=== PATIENT | female | born 1945 | race Caucasian/White ===

== ENCOUNTER → 2024-04-20 | Outpatient (REF) | payer MEDICARE, MEDICAID ==
[~2024-04-20] MED LIST: ATOR1TAB21 PO; CARV25TA PO; COVI30VI IM; HYDR-161 PO; LISI40TA4 PO
[2024-04-20 13:59] LABS: HEPATITIS B SURFACE ANTIBODY NEGATIVE (POSITIVE)
[2024-04-20 14:10] LABS: HEPATITIS B SURFACE ANTIGEN NEGATIVE (NEGATIVE)
[2024-04-20 14:31] LABS: HEPATITIS C VIRUS ABY INDEX < 0.02 INDEX (<0.8)
== END ==
LOC: M SFHCRHEU 10:34
PROVIDERS: ATTEND Internal Medicine
DX: R76.8 Other specified abnormal immunological findings in serum (principal); Z11.59 Encounter for screening for other viral diseases

== ENCOUNTER 2025-03-21 09:53 | Inpatient (IN) | payer MEDICARE, MEDICAID ==
[~2025-03-21 09:53] MED LIST changes: +ALBUTEROL SULFATE 2.5 MG/0.5 ML INH CONCENTRATE NEB SOLN INH PRN; +EPINEPHrine INJ 1 MG/ML 1ML AMP IM PRN; +LISI40TA10 PO; -LISI40TA4 PO; +diphenhydrAMINE 50 MG/ML VIAL IV PRN
[2025-03-21 12:30] VITALS: BP 200/90; TEMP 97.5; O2SAT 93
[2025-03-21] MEDS ORDERED: ACETAMINOPHEN 325 MG TAB PO PRN (12:40)
[2025-03-21] MEDS ORDERED: ALBUTEROL SULFATE 2.5 MG/0.5 ML INH CONCENTRATE NEB SOLN NEB PRN (12:40)
[2025-03-21] MEDS ORDERED: BENZ-18 PO ×2 (13:51→16:32)
[2025-03-21] MEDS ORDERED: DOXY100C3 PO (13:51)
[2025-03-21] MEDS ORDERED: AZIT500T5 PO ×2 (13:51→16:30)
[2025-03-21] MEDS ORDERED: ACET1TAB55 PO (13:51)
[2025-03-21 13:56] LABS: BASO # 0.0 10^3/uL (0.0-0.2); BASO % 0.3 % (0.0-1.0); EOS # 0.0 10^3/uL (0.0-0.5); EOS % 0.0 % (0.0-3.0); LYMPH # 0.7 10^3/uL (1.5-5.0); LYMPH % 5.9 % (24.0-44.0); MONO # 0.3 10^3/uL (0.0-0.8); MONO % 2.7 % (2.0-8.0); NEUTROPHILS # 10.3 10^3/uL (1.5-8.5); NEUTROPHILS % 89.7 % (36.0-66.0)
[2025-03-21 13:57] VITALS: BP 186/86
[2025-03-21 13:59] LABS: PLTBLUE- EDTA FREE CALC 100 K/mm3 (172-450)
[2025-03-21] MEDS ORDERED: HOME MED LIST COMPLETE! XX SCH (14:05)
[2025-03-21] MEDS ORDERED: BENZONATATE 100 MG CAPSULE PO PRN (14:10)
[2025-03-21 14:16] LABS: INR 0.93
[2025-03-21 14:17] LABS: ALT/SGPT 60.0 U/L (7.0-40); AST/SGOT 74.0 U/L (<34); CALCIUM LEVEL 9.0 MG/DL (8.3-10.6); CARBON DIOXIDE LEVEL 29.0 MMOL/L (20-31); CHLORIDE LEVEL 105.0 MMOL/L (98-107); CREATININE FOR GFR 0.76 MG/DL (0.55-1.30); GLOMERULAR FILTRATION RATE 80.7 (>39); POTASSIUM SERUM 4.1 MMOL/L (3.5-5.1); SODIUM LEVEL 145.0 MMOL/L (136-145)
[2025-03-21 14:22] LABS: PLTBLUE- EDTA FREE MACHINE 91 10^3/uL (172-450)
[2025-03-21 14:27] LABS: PLATELET CHECK? YES (YES)
[2025-03-21 15:23] VITALS: BP 182/90
[2025-03-21] MEDS: hydrALAZINE 20 MG/ML 1 ML VIAL IV PRN (15:23)
[2025-03-21] MEDS: ACETAMINOPHEN 325 MG TAB PO SCH (15:33)
[2025-03-21] MEDS: diphenhydrAMINE 50 MG/ML VIAL IV SCH (15:33)
[2025-03-21 15:45] VITALS: BP 162/86; TEMP 97.6; O2SAT 93
[2025-03-21] MEDS: IMMUNE GLOBULIN 10% 20 GM in IV 1 EA IV SCH (16:09)
[2025-03-21] MEDS ORDERED: VENTAER INH (16:30)
[2025-03-21] MEDS ORDERED: CEFD1CAP9 PO (16:30)
[2025-03-21] MEDS ORDERED: IMMUNE GLOBULIN 10% 40 GM in IV 1 EA IV SCH (18:00)
[2025-03-21] MEDS ORDERED: **hydrALAZINE** 10 MG TAB PO SCH (21:00)
[2025-03-22] MEDS ORDERED: ATORVASTATIN 20 MG TAB PO SCH (09:00)
[2025-03-22] MEDS ORDERED: cefTRIAXone SOD 1 GM in DEXTROSE 5% (D5W) ADV/MINI-BAG 50 ML IV SCH (09:00)
[2025-03-22] MEDS ORDERED: AZITHROMYCIN 250 MG TABLET PO SCH (09:00)
== END 2025-03-21 17:52 | disposition home or self-care (01) | DRG 813 ==
LOC: M PCU 12:26
PROVIDERS: ADMIT Internal Medicine; ATTEND Internal Medicine
DX: D69.3 Immune thrombocytopenic purpura (principal); J15.9 Unspecified bacterial pneumonia; M06.9 Rheumatoid arthritis, unspecified; I10 Essential (primary) hypertension; E78.5 Hyperlipidemia, unspecified; B97.4 Respiratory syncytial virus as the cause of diseases classified elsewhere; I16.0 Hypertensive urgency; Z79.899 Other long term (current) drug therapy; Z88.0 Allergy status to penicillin; Z88.8 Allergy status to other drugs, medicaments and biological substances